=== PATIENT | male | born 1950 | race African-American/Black ===

== ENCOUNTER 2019-05-26 16:10 | Inpatient (IN) | payer OTHER ==
[~2019-05-26] VITALS: Ht 195.6 cm; Wt 128.4 kg
[~2019-05-26 16:10] MED LIST: CLONIDINE; HYDR-519; LISINOPRIL; MARIJUANA; VERAPAMIL
[2019-05-26] MEDS ORDERED: SODIUM CHLORIDE 0.9% 1,000 ML IV ONE ×2 (16:33→17:39)
[2019-05-26] MEDS ORDERED: LEVETIRACETAM 500MG PREMIX 100 ML IV ONE (16:45)
[2019-05-26] MEDS ORDERED: LORAZEPAM 2MG/ML CPJ IV ONE ×2 (16:45→22:00)
[2019-05-26 16:56] LABS: BG BASE EXCESS -5.9 mmol/L (-2.0-2.0); BG CARBOXYHEMOGLOBIN 0.9 % (0.5-1.5); BG DEOXYHEMOGLOBIN 4.2 % (0.0-5.0); BG HCO3 ACT 16.8 mmol/L (22.0-26.0); BG METHEMOGLOBIN 0.5 % (0.0-1.5); BG OXYGEN SATURATION 95.7 % (92.0-98.5); BG OXYHEMOGLOBIN 94.4 % (94.0-97.0); BG PCO2 27.2 mmHg (35.0-45.0); BG PH 7.409 (7.350-7.450); BG PO2 75.1 mmHg (75.0-100.0); BG SAMPLE SITE LEFT RADIAL; BG TOTAL HEMOGLOBIN 17.1 g/dL (12.0-18.0); BG VENT MODE ROOM AIR
[2019-05-26 17:38] LABS: HEMATOCRIT. 51.2 % (42.0-52.0); MEAN CORPUSCULAR HEMOGLOBIN 30.4 pg (28.0-32.0); MEAN CORPUSCULAR VOLUME 91.9 fL (80.0-94.0); MEAN PLATELET VOLUME 9.2 fl (7.4-10.4); PLATELET 225 x1000/uL (130-400); RED BLOOD CELL COUNT 5.57 mill/uL (4.7-6.1); RED CELL DISTRIBUTION WIDTH 15.1 % (11.6-14.6)
[2019-05-26] MEDS ORDERED: ACETAMINOPHEN 650MG SUPP PR STA (17:39)
[2019-05-26 17:42] LABS: INR 1.1; PARTIAL THROMBOPLASTIN TIME 28.7 sec (23.4-31.0)
[2019-05-26] MEDS ORDERED: PIPERACILLIN/TAZ 3.375G PREMIX 50 ML IV ONE (17:45)
[2019-05-26] MEDS ORDERED: VANCOMYCIN 1 G PREMIX 200 ML IV ONE (17:45)
[2019-05-26 18:00] LABS: CLARITY URINE CLOUDY (CLEAR); COLOR URINE YELLOW (YELLOW); KETONES URINE 3+ (NEGATIVE); LEUKOCYTE ESTERASE URINE NEGATIVE (NEGATIVE); NITRITE URINE NEGATIVE (NEGATIVE); OCCULT BLOOD URINE 3+ (NEGATIVE); PROTEIN URINE 2+ (NEGATIVE); SPECIFIC GRAVITY URINE 1.019 (1.005-1.030); UROBILINOGEN URINE 0.2 E.U./dL (0.2-1.0)
[2019-05-26 18:10] LABS: PLATELET ESTIMATE NORMAL
[2019-05-26 18:20] LABS: *AMPHETAMINES SCREEN URINE NEGATIVE (NEGATIVE); *BARBITURATES SCREEN URINE NEGATIVE (NEGATIVE); *BENZODIAZEPINES SCREEN URINE NEGATIVE (NEGATIVE); *COCAINE SCREEN URINE NEGATIVE (NEGATIVE); CANNABINOID URINE SCREEN PRESUMTIVE POSITIVE (NEGATIVE); METHADONE URINE SCREEN NEGATIVE (NEGATIVE); OPIATES URINE SCREEN NEGATIVE (NEGATIVE); PHENCYCLIDINE URINE SCREEN NEGATIVE (NEGATIVE)
[2019-05-26 19:13] LABS: CHLORIDE 107 mEq/L (98-107)
[2019-05-26 19:20] LABS: ETHANOL BLOOD < 10 mg/dL
[2019-05-26] MEDS ORDERED: KETOROLAC 30MG/ML VIAL IV ONE (19:30)
[2019-05-26 19:33] LABS: CARBAMAZEPINE < 0.5 ug/mL (4-12); PHENOBARBITAL < 2.1 ug/mL (15.0-40.0); VALPROIC ACID < 3.0 ug/mL (50-100)
[2019-05-26 19:57] LABS: CREATINE KINASE 3415 IU/L (39-308)
[2019-05-26] MEDS ORDERED: MAGNESIUM/ALUMINUM HYDROXIDE/SIMETHICONE 30ML UDC PO PRN (22:30)
[2019-05-26] MEDS ORDERED: DOCUSATE SODIUM 100MG CAPSULE PO PRN (22:30)
[2019-05-26] MEDS ORDERED: ZOLPIDEM TARTRATE 5MG TABLET PO PRN (22:30)
[2019-05-26] MEDS ORDERED: ONDANSETRON HCL 4MG/2ML INJ IV PRN (22:30)
[2019-05-26] MEDS ORDERED: LORAZEPAM 2MG/ML CPJ IV PRN (22:30)
[2019-05-26] MEDS ORDERED: ENOXAPARIN 40MG/0.4ML SYR SUBCUT SCH (22:30)
[2019-05-26] MEDS ORDERED: IPRATROPIUM/ALBUTEROL 0.5-3(2.5)MG/3ML NEB NEB PRN (22:30)
[2019-05-26] MEDS ORDERED: CLONIDINE 0.1MG TABLET PO PRN (22:30)
[2019-05-26] MEDS ORDERED: GUAIFENESIN 200MG/10ML SUGAR FREE UDC PO PRN (22:30)
[2019-05-26] MEDS ORDERED: KETOROLAC 15MG/ML VIAL IV PRN (23:00)
[2019-05-26] MEDS ORDERED: TRAMADOL 50MG TABLET PO PRN (23:00)
[2019-05-26] MEDS ORDERED: ACETAMINOPHEN 650MG SUPP PR ONE (23:00)
[2019-05-26] MEDS ORDERED: NITROGLYCERIN 0.4MG TABLET SL SL PRN (23:00)
[2019-05-27] VITALS (12 sets, daily range): BP systolic 121–157; BP diastolic 39–107
[2019-05-27] MEDS: ACETAMINOPHEN 325MG TABLET PO PRN ×2 (02:41→10:54)
[2019-05-27] MEDS: ENOXAPARIN 120MG/0.8ML SYR SUBCUT SCH ×2 (02:42→14:03)
[2019-05-27] MEDS ORDERED: CEFTRIAXONE 1 G PREMIX 50 ML IV SCH (03:00)
[2019-05-27] MEDS ORDERED: LEVOFLOXACIN 500MG PREMIX 100 ML IV SCH (04:00)
[2019-05-27 07:36] LABS: BASOPHILS % 0.4 % (0.0-2.0); HEMATOCRIT. 44.4 % (42.0-52.0); MEAN CORPUSCULAR HEMOGLOBIN 30.2 pg (28.0-32.0); MEAN CORPUSCULAR VOLUME 89.2 fL (80.0-94.0); MEAN PLATELET VOLUME 9.3 fl (7.4-10.4); MONOCYTES % 9.9 % (2.0-8.0); NEUTROPHILS % 79.7 % (40.0-76.0); PLATELET 196 x1000/uL (130-400); RED BLOOD CELL COUNT 4.97 mill/uL (4.7-6.1); RED CELL DISTRIBUTION WIDTH 15.2 % (11.6-14.6)
[2019-05-27 07:49] LABS: CHLORIDE 111 mEq/L (98-107)
[2019-05-27 08:06] LABS: PHOSPHORUS 3.9 mg/dL (2.5-4.9)
[2019-05-27 08:11] LABS: CREATINE KINASE MB FRACTION 9.4 ng/mL (0.5-3.6)
[2019-05-27 08:41] LABS: CREATINE KINASE 11279 IU/L (39-308)
[2019-05-27] MEDS ORDERED: LEVETIRACETAM 500MG PREMIX 100 ML IV SCH (09:00)
[2019-05-27] MEDS ORDERED: POTASSIUM CHLORIDE 20MEQ/PACKET PO SCH (10:15)
[2019-05-27] MEDS: ASCORBIC ACID 500 MG TABLET PO SCH ×2 (10:53→20:32)
[2019-05-27] MEDS: FAMOTIDINE 20MG TABLET PO SCH ×2 (10:53→20:39)
[2019-05-27] MEDS: ASPIRIN 325MG EC TABLET PO SCH (10:53)
[2019-05-27] MEDS: ZINC SULFATE 220 MG ( 50 ) CAPSULE PO SCH (10:54)
[2019-05-27] MEDS: AMLODIPINE 10MG TABLET PO SCH (10:57)
[2019-05-27] MEDS: LISINOPRIL 20MG TABLET PO SCH ×2 (10:57→20:32)
[2019-05-27 20:14] LABS: CREATINE KINASE MB FRACTION 10.7 ng/mL (0.5-3.6)
[2019-05-27] MEDS: LEVETIRACETAM 500MG PREMIX 100 ML IV SCH (20:32)
[2019-05-28] VITALS (18 sets, daily range): BP systolic 96–164; BP diastolic 38–111
[2019-05-28] MEDS ORDERED: CEFTRIAXONE 1 G PREMIX 50 ML IV SCH (03:00)
[2019-05-28] MEDS: ENOXAPARIN 120MG/0.8ML SYR SUBCUT SCH ×2 (03:13→15:40)
[2019-05-28] MEDS ORDERED: LEVOFLOXACIN 500MG PREMIX 100 ML IV SCH (04:00)
[2019-05-28 08:14] LABS: BASOPHILS % 0.4 % (0.0-2.0); HEMATOCRIT. 44.7 % (42.0-52.0); LYMPHOCYTES % 16.6 % (20.0-50.0); MEAN CORPUSCULAR HEMOGLOBIN 30.4 pg (28.0-32.0); MEAN CORPUSCULAR VOLUME 90.6 fL (80.0-94.0); MEAN PLATELET VOLUME 9.9 fl (7.4-10.4); MONOCYTES % 8.2 % (2.0-8.0); NEUTROPHILS % 74.8 % (40.0-76.0); PLATELET 186 x1000/uL (130-400); RED BLOOD CELL COUNT 4.94 mill/uL (4.7-6.1)
[2019-05-28] MEDS: LEVETIRACETAM 500MG PREMIX 100 ML IV SCH (08:18)
[2019-05-28] MEDS: ASPIRIN 325MG EC TABLET PO SCH (08:22)
[2019-05-28] MEDS: ASCORBIC ACID 500 MG TABLET PO SCH ×2 (08:22→20:47)
[2019-05-28] MEDS: FAMOTIDINE 20MG TABLET PO SCH ×2 (08:23→20:47)
[2019-05-28] MEDS: LISINOPRIL 20MG TABLET PO SCH ×2 (08:23→20:47)
[2019-05-28] MEDS: AMLODIPINE 10MG TABLET PO SCH (08:23)
[2019-05-28] MEDS: ZINC SULFATE 220 MG ( 50 ) CAPSULE PO SCH (08:23)
[2019-05-28 09:46] LABS: CHLORIDE 111 mEq/L (98-107)
[2019-05-28 09:59] LABS: PHOSPHORUS 3.6 mg/dL (2.5-4.9)
[2019-05-28] MEDS: METOPROLOL TARTRATE 25MG TABLET PO SCH ×2 (13:34→20:47)
== END 2019-05-28 20:57 | disposition short-term general hospital (02) | DRG 871 ==
LOC: ER 16:10 → 5EST 18:33 → EDBEDREQSVC 18:35 → EDBEDREQTM 18:35 → EDBEDREQ 18:35 → SUPCPDRO 22:00 → ENRESERV 23:50
PROVIDERS: ADMIT Internal Medicine; ATTEND Internal Medicine
DX: A41.9 Sepsis, unspecified organism (principal); I21.4 Non-ST elevation (NSTEMI) myocardial infarction; G92 Toxic encephalopathy; E87.2 Acidosis; M62.82 Rhabdomyolysis; N39.0 Urinary tract infection, site not specified; E66.9 Obesity, unspecified; E78.00 Pure hypercholesterolemia, unspecified; E78.5 Hyperlipidemia, unspecified; G40.909 Epilepsy, unspecified, not intractable, without status epilepticus; E83.51 Hypocalcemia; E86.0 Dehydration; E87.6 Hypokalemia; F03.90 Unspecified dementia, unspecified severity, without behavioral disturbance, psychotic disturbance, mood disturbance, and anxiety; F12.90 Cannabis use, unspecified, uncomplicated; I11.9 Hypertensive heart disease without heart failure; Z82.3 Family history of stroke; Z82.49 Family history of ischemic heart disease and other diseases of the circulatory system; Z91.14 Patient's other noncompliance with medication regimen; Z91.19 Patient's noncompliance with other medical treatment and regimen; Z79.899 Other long term (current) drug therapy
CPT/HCPCS: 36415; 36600; 70551; 71045; 80061; 80156; 80165; 80184; 80185; 80305; 80320; 81003; 82140; 82375; 82550; 82553; 82805; 82962; 83036; 83605; 83735; 83880; 84100; 84145; 84443; 84484; 93005; 93306; 93970; 96365; 96367; 96375; 96376; 99291; J0696; J1650; J1885; J1953; J1956; J2060; J2543; J3370; J7030; J7040; A4315; G0480

== ENCOUNTER 2019-07-18 13:54 | Inpatient (IN) | payer OTHER ==
[~2019-07-18] VITALS: Ht 195.6 cm; Wt 131.5 kg
[2019-07-18] MEDS ORDERED: LEVETIRACETAM 1000MG/100ML 100 ML IV ONE (14:45)
[2019-07-18] MEDS ORDERED: LORAZEPAM 2MG/ML CPJ IV ONE (14:45)
[2019-07-18 15:20] LABS: BASOPHILS % 0.4 % (0.0-2.0); EOSINOPHILS % 0.5 % (0.0-5.0); HEMATOCRIT. 48.2 % (42.0-52.0); HEMOGLOBIN. 15.7 g/dL (14.0-18.0); MEAN CORPUSCULAR HEMOGLOBIN 30.7 pg (28.0-32.0); MEAN CORPUSCULAR VOLUME 94.1 fL (80.0-94.0); MEAN PLATELET VOLUME 9.8 fl (7.4-10.4); MONOCYTES % 4.7 % (2.0-8.0); NEUTROPHILS % 71.4 % (40.0-76.0); PLATELET 200 x1000/uL (130-400); RED BLOOD CELL COUNT 5.12 mill/uL (4.7-6.1); RED CELL DISTRIBUTION WIDTH 15.1 % (11.6-14.6)
[2019-07-18 15:24] LABS: CHLORIDE 106 mEq/L (98-107)
[2019-07-18 15:31] LABS: ETHANOL BLOOD < 10 mg/dL
[2019-07-18] MEDS ORDERED: CLONIDINE 0.1MG TABLET PO PRN (18:15)
[2019-07-18] MEDS ORDERED: ACETAMINOPHEN 325MG TABLET PO PRN (18:15)
[2019-07-18] MEDS ORDERED: MAGNESIUM/ALUMINUM HYDROXIDE/SIMETHICONE 30ML UDC PO PRN (18:15)
[2019-07-18] MEDS ORDERED: HYDROCODONE/ACETAMINOPHEN 5/325MG TABLET PO PRN (18:15)
[2019-07-18] MEDS ORDERED: LEVETIRACETAM 500MG PREMIX 100 ML IV ONE (18:15)
[2019-07-18] MEDS ORDERED: ONDANSETRON HCL 4MG/2ML INJ IV PRN (18:15)
[2019-07-18 18:42] LABS: CLARITY URINE CLEAR (CLEAR); COLOR URINE YELLOW (YELLOW); KETONES URINE TRACE (NEGATIVE); LEUKOCYTE ESTERASE URINE NEGATIVE (NEGATIVE); NITRITE URINE NEGATIVE (NEGATIVE); OCCULT BLOOD URINE NEGATIVE (NEGATIVE); PROTEIN URINE TRACE (NEGATIVE); SPECIFIC GRAVITY URINE 1.017 (1.005-1.030); UROBILINOGEN URINE 0.2 E.U./dL (0.2-1.0)
[2019-07-18 19:00] LABS: *AMPHETAMINES SCREEN URINE NEGATIVE (NEGATIVE); *BARBITURATES SCREEN URINE NEGATIVE (NEGATIVE); *BENZODIAZEPINES SCREEN URINE NEGATIVE (NEGATIVE); *COCAINE SCREEN URINE NEGATIVE (NEGATIVE); METHADONE URINE SCREEN NEGATIVE (NEGATIVE)
[2019-07-18 19:01] LABS: CANNABINOID URINE SCREEN PRESUMTIVE POSITIVE (NEGATIVE); OPIATES URINE SCREEN NEGATIVE (NEGATIVE); PHENCYCLIDINE URINE SCREEN NEGATIVE (NEGATIVE)
[2019-07-18] MEDS: AMLODIPINE 10MG TABLET PO SCH (19:57)
[2019-07-18] MEDS: ENOXAPARIN 40MG/0.4ML SYR SUBCUT SCH (20:01)
[2019-07-18] MEDS: DEXT 5%/0.45% NACL 1000ML 1,000 ML IV SCH (21:26)
[2019-07-18] MEDS ORDERED: LEVETIRACETAM 500MG PREMIX 100 ML IV SCH (22:00)
[2019-07-18 23:04] LABS: CREATINE KINASE 249 IU/L (39-308)
[2019-07-19] VITALS (7 sets, daily range): BP systolic 135–159; BP diastolic 79–90
[2019-07-19] MEDS: LORAZEPAM 2MG/ML CPJ IV PRN (02:04)
[2019-07-19 07:23] LABS: CHLORIDE 108 mEq/L (98-107)
[2019-07-19 07:37] LABS: BASOPHILS % 0.2 % (0.0-2.0); HEMATOCRIT. 44.9 % (42.0-52.0); HEMOGLOBIN. 15.1 g/dL (14.0-18.0); LYMPHOCYTES % 14.6 % (20.0-50.0); MEAN CORPUSCULAR HEMOGLOBIN 30.2 pg (28.0-32.0); MEAN PLATELET VOLUME 9.5 fl (7.4-10.4); MONOCYTES % 6.9 % (2.0-8.0); NEUTROPHILS % 78.3 % (40.0-76.0); PLATELET 165 x1000/uL (130-400); RED BLOOD CELL COUNT 4.99 mill/uL (4.7-6.1); RED CELL DISTRIBUTION WIDTH 14.8 % (11.6-14.6)
[2019-07-19 07:39] LABS: CREATINE KINASE 371 IU/L (39-308)
[2019-07-19] MEDS ORDERED: LEVETIRACETAM 500MG PREMIX 100 ML IV SCH ×2 (09:00→22:15)
[2019-07-19] MEDS: AMLODIPINE 10MG TABLET PO SCH (09:00)
[2019-07-19] MEDS ORDERED: LEVETIRACETAM 500MG PREMIX 100 ML IV ONE (09:00)
[2019-07-19] MEDS: ENOXAPARIN 40MG/0.4ML SYR SUBCUT SCH (09:00)
[2019-07-19] MEDS: DEXT 5%/0.45% NACL 1000ML 1,000 ML IV SCH ×2 (10:43→21:53)
[2019-07-19] MEDS ORDERED: PHENYTOIN SODIUM 500 MG in SODIUM CHLORIDE 0.9% 50 ML IV NR (12:00)
[2019-07-19] MEDS ORDERED: KEPP500 PO (16:38)
[2019-07-19] MEDS ORDERED: ATORVASTATIN CALCIUM 20MG TABLET PO SCH (21:00)
[2019-07-20] VITALS: BP 139/86
[2019-07-20] MEDS: LORAZEPAM 2MG/ML CPJ IV PRN (00:07)
[2019-07-20 04:00] VITALS: BP 134/74
[2019-07-20 08:00] VITALS: BP 141/79
[2019-07-20] MEDS: AMLODIPINE 10MG TABLET PO SCH (08:57)
[2019-07-20] MEDS ORDERED: ENOXAPARIN 30MG/0.3ML SYR SUBCUT SCH (09:00)
[2019-07-20] MEDS ORDERED: LEVETIRACETAM 500MG TABLET PO SCH (09:00)
[2019-07-20] MEDS: DEXT 5%/0.45% NACL 1000ML 1,000 ML IV SCH (10:45)
== END 2019-07-20 12:44 | disposition home or self-care (01) | DRG 101 ==
LOC: ER 13:54 → 7WST 17:04 → EDBEDREQSVC 17:09 → EDBEDREQ 17:09 → EDBEDREQTM 17:28 → ENRESERV 19:12 → CANRESERV 19:30 → ENRESERV 19:30 → EDBEDREQSVC 19:33 → EDBEDREQTM 19:36 → ENRESERV 23:17
PROVIDERS: ADMIT Hospitalist; ATTEND Hospitalist
DX: G40.401 Other generalized epilepsy and epileptic syndromes, not intractable, with status epilepticus (principal); E66.01 Morbid (severe) obesity due to excess calories; I10 Essential (primary) hypertension; Z68.34 Body mass index [BMI] 34.0-34.9, adult; F51.04 Psychophysiologic insomnia; G89.29 Other chronic pain; M54.5 Low back pain; M48.00 Spinal stenosis, site unspecified; Z91.14 Patient's other noncompliance with medication regimen; Z82.49 Family history of ischemic heart disease and other diseases of the circulatory system
CPT/HCPCS: 36415; 71045; 80053; 80305; 80320; 81003; 82550; 85025; 93005; 93970; 99291; J1165; J1650; J1953; J2060; G0480

== ENCOUNTER 2019-11-28 14:22 | Inpatient (IN) | payer OTHER ==
[~2019-11-28] VITALS: Ht 184.2 cm; Wt 146.1 kg
[~2019-11-28 14:22] MED LIST changes: -CLONIDINE; -HYDR-519; +KEPP500 PO; -LISINOPRIL; -MARIJUANA; -VERAPAMIL
[2019-11-28] MEDS ORDERED: ONDANSETRON HCL 4MG/2ML INJ IV STA (14:29)
[2019-11-28] MEDS ORDERED: SODIUM CHLORIDE 0.9% 1,000 ML IV ONE (14:29)
[2019-11-28] MEDS ORDERED: LORAZEPAM 2MG/ML CPJ IV ONE (14:30)
[2019-11-28] MEDS ORDERED: LEVETIRACETAM 1000MG/100ML 100 ML IV ONE (14:30)
[2019-11-28] MEDS ORDERED: LORAZEPAM 2MG/ML CPJ ONE (14:31)
[2019-11-28] MEDS ORDERED: PROPOFOL 10MG/ML 100ML 100 ML IV SCH (15:00)
[2019-11-28] MEDS ORDERED: PROPOFOL 200MG/20ML VIAL IV ONE (15:00)
[2019-11-28] MEDS ORDERED: HYDRALAZINE 20MG/ML VIAL IV ONE ×3 (15:15→16:30)
[2019-11-28 15:20] LABS: BASOPHILS % 0.4 % (0.0-2.0); EOSINOPHILS % 0.8 % (0.0-5.0); HEMOGLOBIN. 15.7 g/dL (14.0-18.0); LYMPHOCYTES % 51.6 % (20.0-50.0); MEAN CORPUSCULAR HEMOGLOBIN 31.4 pg (28.0-32.0); MEAN CORPUSCULAR VOLUME 93.8 fL (80.0-94.0); MEAN PLATELET VOLUME 10.6 fl (7.4-10.4); MONOCYTES % 8.1 % (2.0-8.0); NEUTROPHILS % 39.1 % (40.0-76.0); PLATELET 228 x1000/uL (130-400); RED BLOOD CELL COUNT 5.01 mill/uL (4.7-6.1); RED CELL DISTRIBUTION WIDTH 14.4 % (11.6-14.6)
[2019-11-28 15:41] LABS: CLARITY URINE CLEAR (CLEAR); COLOR URINE YELLOW (YELLOW); KETONES URINE TRACE (NEGATIVE); LEUKOCYTE ESTERASE URINE TRACE (NEGATIVE); NITRITE URINE NEGATIVE (NEGATIVE); OCCULT BLOOD URINE 1+ (NEGATIVE); PROTEIN URINE 2+ (NEGATIVE); SPECIFIC GRAVITY URINE 1.018 (1.005-1.030); UROBILINOGEN URINE 0.2 E.U./dL (0.2-1.0)
[2019-11-28 16:19] LABS: CHLORIDE 104 mEq/L (98-107)
[2019-11-28 16:23] LABS: ETHANOL BLOOD < 10 mg/dL
[2019-11-28 16:42] LABS: *AMPHETAMINES SCREEN URINE NEGATIVE (NEGATIVE); *BARBITURATES SCREEN URINE NEGATIVE (NEGATIVE)
[2019-11-28 16:43] LABS: *BENZODIAZEPINES SCREEN URINE NEGATIVE (NEGATIVE); *COCAINE SCREEN URINE NEGATIVE (NEGATIVE); CANNABINOID URINE SCREEN PRESUMTIVE POSITIVE (NEGATIVE); METHADONE URINE SCREEN NEGATIVE (NEGATIVE); OPIATES URINE SCREEN NEGATIVE (NEGATIVE); PHENCYCLIDINE URINE SCREEN NEGATIVE (NEGATIVE)
[2019-11-28] MEDS ORDERED: VALPROATE SODIUM 500 MG in SODIUM CHLORIDE 0.9% 100 ML IV SCH (17:15)
[2019-11-28] MEDS ORDERED: NICARDIPINE 40MG/200ML PREMIX 200 ML IV PRN (17:45)
[2019-11-28 17:52] LABS: BG BASE EXCESS -7.8 mmol/L (-2.0-2.0); BG CARBOXYHEMOGLOBIN 0.4 % (0.5-1.5); BG DEOXYHEMOGLOBIN 0.8 % (0.0-5.0); BG FRACTION INSPIRED OXYGEN 100; BG HCO3 ACT 16.7 mmol/L (22.0-26.0); BG METHEMOGLOBIN 0.2 % (0.0-1.5); BG OXYGEN SATURATION 99.2 % (92.0-98.5); BG OXYHEMOGLOBIN 98.6 % (94.0-97.0); BG PCO2 31.6 mmHg (35.0-45.0); BG PO2 213.9 mmHg (75.0-100.0); BG SAMPLE SITE RIGHT RADIAL; BG TIDAL VOLUME(mL) 550 mL; BG TOTAL HEMOGLOBIN 15.1 g/dL (12.0-18.0); BG VENT MODE VENT - A/C; BG VENT RATE 14 set
[2019-11-28] MEDS: DEXT 5%/0.45% NACL 1000ML 1,000 ML IV SCH (18:21)
[2019-11-28] MEDS ORDERED: LORAZEPAM 2MG/ML CPJ IV PRN ×2 (18:30→23:15)
[2019-11-28] MEDS ORDERED: PANTOPRAZOLE SODIUM 40 MG/VIAL IV SCH (18:30)
[2019-11-28] MEDS ORDERED: ONDANSETRON HCL 4MG/2ML INJ IV PRN (18:30)
[2019-11-28] MEDS ORDERED: MORPHINE SULFATE 2 MG/ML CPJ (NOT FOR IM USE) IV PRN (18:30)
[2019-11-28] MEDS: AMLODIPINE 10MG TABLET PO SCH (18:30)
[2019-11-28] MEDS ORDERED: LISINOPRIL 5MG TABLET PO SCH (18:30)
[2019-11-28] MEDS ORDERED: ACETAMINOPHEN 325MG TABLET PO PRN (18:30)
[2019-11-28] MEDS: LISINOPRIL 20MG TABLET PO SCH (20:00)
[2019-11-28] MEDS: METOPROLOL TARTRATE 25MG TABLET PO SCH (21:00)
[2019-11-29] VITALS (30 sets, daily range): BP systolic 87–154; BP diastolic 56–85
[2019-11-29] MEDS ORDERED: NICARDIPINE 50 MG in SODIUM CHLORIDE 0.9% 230 ML IV PRN (03:00)
[2019-11-29] MEDS ORDERED: NICARDIPINE 40MG/200ML PREMIX 200 ML IV PRN (03:00)
[2019-11-29 04:59] LABS: CHLORIDE 107 mEq/L (98-107)
[2019-11-29 05:01] LABS: HEMATOCRIT. 41.8 % (42.0-52.0); HEMOGLOBIN. 14.5 g/dL (14.0-18.0); MEAN CORPUSCULAR HEMOGLOBIN 31.2 pg (28.0-32.0); MEAN CORPUSCULAR VOLUME 90.3 fL (80.0-94.0); PLATELET 139 x1000/uL (130-400); RED BLOOD CELL COUNT 4.63 mill/uL (4.7-6.1)
[2019-11-29] MEDS: AMLODIPINE 10MG TABLET PO SCH (09:29)
[2019-11-29] MEDS: METOPROLOL TARTRATE 25MG TABLET PO SCH ×2 (09:29→20:37)
[2019-11-29] MEDS: LISINOPRIL 20MG TABLET PO SCH (09:29)
[2019-11-29 10:10] LABS: BG BASE EXCESS 1.5 mmol/L (-2.0-2.0); BG CARBOXYHEMOGLOBIN 0.2 % (0.5-1.5); BG DEOXYHEMOGLOBIN 1.6 % (0.0-5.0); BG FRACTION INSPIRED OXYGEN 50; BG HCO3 ACT 25.6 mmol/L (22.0-26.0); BG METHEMOGLOBIN 0.2 % (0.0-1.5); BG OXYGEN SATURATION 98.4 % (92.0-98.5); BG PCO2 38.8 mmHg (35.0-45.0); BG PH 7.437 (7.350-7.450); BG PO2 115.4 mmHg (75.0-100.0); BG SAMPLE SITE RIGHT RADIAL; BG TIDAL VOLUME(mL) 550 mL; BG TOTAL HEMOGLOBIN 14.7 g/dL (12.0-18.0); BG VENT MODE VENT - A/C; BG VENT RATE 16 set
[2019-11-29 10:31] LABS: PLATELET ESTIMATE NORMAL
[2019-11-29] MEDS: PROPOFOL 10MG/ML 100ML 100 ML IV PRN ×5 (11:36→23:59)
[2019-11-29] MEDS: PANTOPRAZOLE SODIUM 40 MG/VIAL IV SCH (12:00)
[2019-11-29] MEDS: DEXT 5%/0.45% NACL 1000ML 1,000 ML IV SCH (12:02)
[2019-11-29] MEDS: LEVETIRACETAM 500MG PREMIX 100 ML IV SCH ×2 (12:58→20:36)
[2019-11-29] MEDS ORDERED: IPRATROPIUM/ALBUTEROL 0.5-3(2.5)MG/3ML NEB HHN PRN (17:15)
[2019-11-29] MEDS: ENOXAPARIN 40MG/0.4ML SYR SUBCUT SCH (17:38)
[2019-11-29] MEDS: IPRATROPIUM/ALBUTEROL 0.5-3(2.5)MG/3ML NEB HHN SCH (20:55)
[2019-11-30] VITALS (47 sets, daily range): BP systolic 98–191; BP diastolic 53–130
[2019-11-30] MEDS: PROPOFOL 10MG/ML 100ML 100 ML IV PRN ×4 (03:00→08:58)
[2019-11-30] MEDS: DEXT 5%/0.45% NACL 1000ML 1,000 ML IV SCH ×2 (04:11→20:11)
[2019-11-30 06:41] LABS: CHLORIDE 104 mEq/L (98-107)
[2019-11-30 06:43] LABS: BASOPHILS % 0.3 % (0.0-2.0); EOSINOPHILS % 0.1 % (0.0-5.0); HEMATOCRIT. 38.7 % (42.0-52.0); HEMOGLOBIN. 13.1 g/dL (14.0-18.0); LYMPHOCYTES % 11.3 % (20.0-50.0); MEAN CORPUSCULAR HEMOGLOBIN 31.2 pg (28.0-32.0); MEAN CORPUSCULAR VOLUME 92.5 fL (80.0-94.0); MEAN PLATELET VOLUME 9.9 fl (7.4-10.4); MONOCYTES % 8.9 % (2.0-8.0); NEUTROPHILS % 79.4 % (40.0-76.0); PLATELET 133 x1000/uL (130-400); RED BLOOD CELL COUNT 4.19 mill/uL (4.7-6.1)
[2019-11-30] MEDS: IPRATROPIUM/ALBUTEROL 0.5-3(2.5)MG/3ML NEB HHN SCH ×2 (08:44→14:20)
[2019-11-30 08:50] LABS: BG BASE EXCESS 0.8 mmol/L (-2.0-2.0); BG CARBOXYHEMOGLOBIN 0.5 % (0.5-1.5); BG DEOXYHEMOGLOBIN 2.9 % (0.0-5.0); BG FRACTION INSPIRED OXYGEN 40; BG HCO3 ACT 24.8 mmol/L (22.0-26.0); BG METHEMOGLOBIN 0.2 % (0.0-1.5); BG OXYGEN SATURATION 97.1 % (92.0-98.5); BG OXYHEMOGLOBIN 96.4 % (94.0-97.0); BG PCO2 38.1 mmHg (35.0-45.0); BG PH 7.432 (7.350-7.450); BG PO2 89.5 mmHg (75.0-100.0); BG SAMPLE SITE RIGHT RADIAL; BG TIDAL VOLUME(mL) 550 mL; BG TOTAL HEMOGLOBIN 14.5 g/dL (12.0-18.0); BG VENT MODE VENT - A/C; BG VENT RATE 16 set
[2019-11-30] MEDS: LISINOPRIL 20MG TABLET PO SCH (08:59)
[2019-11-30] MEDS: METOPROLOL TARTRATE 25MG TABLET PO SCH ×2 (08:59→20:11)
[2019-11-30] MEDS: AMLODIPINE 10MG TABLET PO SCH (08:59)
[2019-11-30] MEDS: PANTOPRAZOLE SODIUM 40 MG/VIAL IV SCH (09:00)
[2019-11-30] MEDS ORDERED: POTASSIUM CHLORIDE INJ 40 MEQ in DEXT 5% WATER 500 ML IV NR (10:30)
[2019-11-30] MEDS: LEVETIRACETAM 500MG PREMIX 100 ML IV SCH (10:32)
[2019-11-30 11:38] LABS: BG BASE EXCESS -0.1 mmol/L (-2.0-2.0); BG CARBOXYHEMOGLOBIN 0.3 % (0.5-1.5); BG DEOXYHEMOGLOBIN 2.2 % (0.0-5.0); BG FRACTION INSPIRED OXYGEN 40; BG HCO3 ACT 23.5 mmol/L (22.0-26.0); BG METHEMOGLOBIN 0.2 % (0.0-1.5); BG OXYGEN SATURATION 97.8 % (92.0-98.5); BG OXYHEMOGLOBIN 97.3 % (94.0-97.0); BG PCO2 35.5 mmHg (35.0-45.0); BG PH 7.439 (7.350-7.450); BG PO2 101.1 mmHg (75.0-100.0); BG PRESSURE SUPPORT 10; BG SAMPLE SITE RIGHT RADIAL; BG VENT MODE VENT - CPAP
[2019-11-30] MEDS: HYDRALAZINE 20MG/ML VIAL IV PRN ×2 (16:11→20:59)
[2019-11-30] MEDS: ENOXAPARIN 40MG/0.4ML SYR SUBCUT SCH (18:09)
[2019-11-30] MEDS ORDERED: POTASSIUM CHLORIDE 20MEQ TABLET SR PO NR (20:30)
[2019-11-30] MEDS ORDERED: LEVETIRACETAM 500MG TABLET PO SCH (21:00)
[2019-11-30] MEDS ORDERED: ATORVASTATIN CALCIUM 20MG TABLET PO SCH (21:00)
[2019-11-30] MEDS ORDERED: LISINOPRIL 40MG TABLET PO NR (21:30)
[2019-11-30] MEDS ORDERED: ENALAPRIL 2.5MG/2ML VIAL 2ML IV NR (21:30)
== END 2019-11-30 21:50 | disposition short-term general hospital (02) | DRG 208 ==
LOC: ER 14:22 → CVICU 17:50 → EDBEDREQ 17:54 → EDBEDREQTM 17:54 → ENRESERV 11-29 08:19 → CVICU 11-29 09:27
PROVIDERS: ADMIT Hospitalist; ATTEND Hospitalist
PROC: 0BH17EZ Insertion of Endotracheal Airway into Trachea, Via Natural or Artificial Opening (ICD-10-PCS; principal; 2019-11-28)
PROC: 5A1945Z Respiratory Ventilation, 24-96 Consecutive Hours (ICD-10-PCS; 2019-11-28)
DX: J96.00 Acute respiratory failure, unspecified whether with hypoxia or hypercapnia (principal); J98.11 Atelectasis; G40.401 Other generalized epilepsy and epileptic syndromes, not intractable, with status epilepticus; F10.10 Alcohol abuse, uncomplicated; I10 Essential (primary) hypertension; F12.90 Cannabis use, unspecified, uncomplicated; D72.829 Elevated white blood cell count, unspecified; Z79.899 Other long term (current) drug therapy; Z78.1 Physical restraint status
CPT/HCPCS: 36415; 36600; 71045; 80048; 80053; 80305; 80320; 81003; 82375; 82805; 82962; 84132; 84478; 84484; 85025; 87070; 92610; 93005; 93970; 96365; 99291; C9113; J0360; J1650; J1953; J2060; J2405; J2704; J3480; J3490; J7030; J7050; J7060; G0480

== ENCOUNTER 2020-11-06 14:22 | Inpatient (IN) | payer OTHER ==
[~2020-11-06] VITALS: Ht 195.6 cm; Wt 137.0 kg
[2020-11-06 15:40] LABS: HEMATOCRIT. 45.6 % (42.0-52.0); HEMOGLOBIN. 15.8 g/dL (14.0-18.0); MEAN CORPUSCULAR HEMOGLOBIN 30.8 pg (28.0-32.0); MEAN CORPUSCULAR VOLUME 88.5 fL (80.0-94.0); MEAN PLATELET VOLUME 9.4 fl (7.4-10.4); PLATELET 167 x1000/uL (130-400); RED BLOOD CELL COUNT 5.15 mill/uL (4.7-6.1); RED CELL DISTRIBUTION WIDTH 13.8 % (11.6-14.6)
[2020-11-06] MEDS ORDERED: LEVETIRACETAM 500MG PREMIX 100 ML IV ONE (15:45)
[2020-11-06 15:48] LABS: CHLORIDE 112 mEq/L (98-107)
[2020-11-06 15:54] LABS: ETHANOL BLOOD < 10 mg/dL
[2020-11-06 15:57] LABS: VALPROIC ACID <3.0 ug/mL ug/mL (50-100)
[2020-11-06 16:05] LABS: CARBAMAZEPINE < 0.5 ug/mL (4-12); PHENOBARBITAL < 2.1 ug/mL (15.0-40.0)
[2020-11-06 16:08] LABS: PLATELET ESTIMATE NORMAL
[2020-11-06] MEDS ORDERED: CLONIDINE 0.2MG TABLET PO ONE (17:00)
[2020-11-06] MEDS ORDERED: AZITHROMYCIN 500 MG in DEXT 5% WATER 250 ML IV ONE (18:00)
[2020-11-06] MEDS ORDERED: CEFTRIAXONE 1 G PREMIX 50 ML IV ONE (18:00)
[2020-11-06] MEDS ORDERED: HYDRALAZINE 20MG/ML VIAL IV ONE ×2 (18:45→20:15)
[2020-11-06] MEDS ORDERED: ASPIRIN 81MG TABLET PO ONE (20:15)
[2020-11-06] MEDS ORDERED: NITROGLYCERIN OINT 1GM/INCH UDPKT TD ONE (20:15)
[2020-11-06] MEDS ORDERED: FUROSEMIDE 40MG/4ML VIAL IV ONE (20:15)
[2020-11-06] MEDS ORDERED: MAGNESIUM/ALUMINUM HYDROXIDE/SIMETHICONE 30ML UDC PO PRN (21:15)
[2020-11-06] MEDS ORDERED: GUAIFENESIN 200MG/10ML SUGAR FREE UDC PO PRN (21:15)
[2020-11-06] MEDS ORDERED: NITROGLYCERIN 0.4MG TABLET SL SL PRN (21:15)
[2020-11-06] MEDS ORDERED: ACETAMINOPHEN 325MG TABLET PO PRN (21:15)
[2020-11-06] MEDS ORDERED: ONDANSETRON HCL 4MG/2ML INJ IV PRN (21:15)
[2020-11-06] MEDS ORDERED: DOCUSATE SODIUM 100MG CAPSULE PO PRN (21:15)
[2020-11-06] MEDS ORDERED: IPRATROPIUM/ALBUTEROL 0.5-3(2.5)MG/3ML NEB NEB PRN (21:15)
[2020-11-06] MEDS ORDERED: PIPERACILLIN/TAZ 3.375G PREMIX 50 ML IV SCH ×2 (21:15→22:00)
[2020-11-06] MEDS ORDERED: LORAZEPAM 2MG/ML CPJ IV PRN (21:15)
[2020-11-06] MEDS ORDERED: CLONIDINE 0.1MG TABLET PO PRN (21:15)
[2020-11-06 21:40] LABS: CLARITY URINE CLEAR (CLEAR); COLOR URINE YELLOW (YELLOW); KETONES URINE 2+ (NEGATIVE); LEUKOCYTE ESTERASE URINE TRACE (NEGATIVE); NITRITE URINE NEGATIVE (NEGATIVE); OCCULT BLOOD URINE 1+ (NEGATIVE); PROTEIN URINE 1+ (NEGATIVE); SPECIFIC GRAVITY URINE 1.011 (1.005-1.030); UROBILINOGEN URINE 0.2 E.U./dL (0.2-1.0)
[2020-11-06 21:54] LABS: *AMPHETAMINES SCREEN URINE NEGATIVE (NEGATIVE)
[2020-11-06 21:55] LABS: *BARBITURATES SCREEN URINE NEGATIVE (NEGATIVE); *BENZODIAZEPINES SCREEN URINE NEGATIVE (NEGATIVE); *COCAINE SCREEN URINE NEGATIVE (NEGATIVE); METHADONE URINE SCREEN NEGATIVE (NEGATIVE); OPIATES URINE SCREEN NEGATIVE (NEGATIVE); PHENCYCLIDINE URINE SCREEN NEGATIVE (NEGATIVE)
[2020-11-06 21:56] LABS: CANNABINOID URINE SCREEN PRESUMTIVE POSITIVE (NEGATIVE)
[2020-11-06] MEDS: HYDRALAZINE HCL 50MG TABLET PO SCH (22:00)
[2020-11-06] MEDS: NITROGLYCERIN OINT 1GM/INCH UDPKT TD SCH (22:00)
[2020-11-06 22:03] LABS: T4 FREE 1.16 ng/dL (0.76-1.46)
[2020-11-06 22:14] LABS: FOLIC ACID (FOLATE) SERUM >20 ng/mL ng/mL (>5.38)
[2020-11-06] MEDS: AMLODIPINE 10MG TABLET PO SCH (22:16)
[2020-11-06 22:25] LABS: VITAMIN B12 SERUM 482 pg/mL (211-911)
[2020-11-06 22:35] LABS: CREATINE KINASE MB FRACTION 2.9 ng/mL (0.5-3.6)
[2020-11-07] MEDS: ENOXAPARIN 40MG/0.4ML SYR SUBCUT SCH ×3 (00:55→20:30)
[2020-11-07] MEDS: ZOLPIDEM TARTRATE 5MG TABLET PO PRN ×2 (03:03→21:38)
[2020-11-07 03:44] VITALS: BP 105/80
[2020-11-07 04:00] VITALS: BP 105/80
[2020-11-07] MEDS: NITROGLYCERIN OINT 1GM/INCH UDPKT TD SCH ×3 (05:47→20:31)
[2020-11-07] MEDS: ACETAMINOPHEN 325MG TABLET PO PRN ×2 (05:48→20:28)
[2020-11-07] MEDS: HYDRALAZINE HCL 50MG TABLET PO SCH ×3 (05:49→20:27)
[2020-11-07] MEDS ORDERED: PIPERACILLIN/TAZOBACTAM 3.375 G in DEXT 5% WATER 100 ML IV SCH (06:00)
[2020-11-07 07:27] LABS: BASOPHILS % 0.2 % (0.0-2.0); HEMATOCRIT. 44.1 % (42.0-52.0); HEMOGLOBIN. 15.4 g/dL (14.0-18.0); LYMPHOCYTES % 11.9 % (20.0-50.0); MEAN CORPUSCULAR HEMOGLOBIN 31.2 pg (28.0-32.0); MEAN CORPUSCULAR VOLUME 89.4 fL (80.0-94.0); MEAN PLATELET VOLUME 9.9 fl (7.4-10.4); MONOCYTES % 11.6 % (2.0-8.0); NEUTROPHILS % 76.3 % (40.0-76.0); PLATELET 166 x1000/uL (130-400); RED BLOOD CELL COUNT 4.93 mill/uL (4.7-6.1); RED CELL DISTRIBUTION WIDTH 13.9 % (11.6-14.6)
[2020-11-07 08:00] VITALS: BP 139/87
[2020-11-07 08:03] LABS: CHLORIDE 108 mEq/L (98-107)
[2020-11-07] MEDS: METOPROLOL TARTRATE 25MG TABLET PO SCH ×2 (08:12→20:27)
[2020-11-07] MEDS: CHOLECALCIFEROL (D3) 1000 UNIT TABLET PO SCH (08:12)
[2020-11-07] MEDS: LISINOPRIL 20MG TABLET PO SCH ×2 (08:12→20:27)
[2020-11-07] MEDS: LEVETIRACETAM 500MG TABLET PO SCH ×2 (08:12→20:27)
[2020-11-07] MEDS: ZINC SULFATE 220 MG ( 50 ) CAPSULE PO SCH (08:12)
[2020-11-07] MEDS: FAMOTIDINE 20MG TABLET PO SCH ×2 (08:12→20:28)
[2020-11-07] MEDS: ASCORBIC ACID 500 MG TABLET PO SCH ×2 (08:12→20:27)
[2020-11-07 08:13] LABS: PHOSPHORUS 3.1 mg/dL (2.5-4.9)
[2020-11-07] MEDS: AMLODIPINE 10MG TABLET PO SCH (08:13)
[2020-11-07 08:16] LABS: CREATINE KINASE 528 IU/L (39-308)
[2020-11-07 08:19] LABS: CREATINE KINASE MB FRACTION 3.4 ng/mL (0.5-3.6)
[2020-11-07] MEDS ORDERED: POTASSIUM CHLORIDE 20MEQ/PACKET PO NR (10:30)
[2020-11-07 12:00] VITALS: BP 143/95
[2020-11-07] MEDS ORDERED: KCL 20MEQ/100ML PREMIX 100 ML IV NR (12:00)
[2020-11-07] MEDS: PIPERACILLIN/TAZOBACTAM 3.375 G in DEXT 5% WATER 100 ML IV SCH ×2 (14:07→20:30)
[2020-11-07 16:00] VITALS: BP 130/91
[2020-11-07] MEDS ORDERED: ALBUTEROL 6.7GM HFA INHALER ORI PRN (16:00)
[2020-11-07] MEDS: FLUTICASONE PROPIONATE 50MCG/SPRAY BOTTLE BOTHNSTRLS SCH (16:54)
[2020-11-07 19:53] VITALS: BP 131/86
[2020-11-08] VITALS: BP_SYST 126; BP_SYST 154; BP_DIAS 82; BP_DIAS 98
[2020-11-08] MEDS: PIPERACILLIN/TAZOBACTAM 3.375 G in DEXT 5% WATER 100 ML IV SCH ×3 (03:07→15:15)
[2020-11-08 04:00] VITALS: BP 147/90
[2020-11-08] MEDS: NITROGLYCERIN OINT 1GM/INCH UDPKT TD SCH ×2 (05:19→14:11)
[2020-11-08] MEDS: HYDRALAZINE HCL 50MG TABLET PO SCH ×2 (05:19→14:11)
[2020-11-08] MEDS ORDERED: ALBUTEROL (0.083%) 2.5MG/3ML NEB HHN PRN (06:45)
[2020-11-08 08:00] VITALS: BP 142/98
[2020-11-08] MEDS: LEVETIRACETAM 500MG TABLET PO SCH (09:21)
[2020-11-08] MEDS: LISINOPRIL 20MG TABLET PO SCH (09:21)
[2020-11-08] MEDS: AMLODIPINE 10MG TABLET PO SCH (09:21)
[2020-11-08] MEDS: ZINC SULFATE 220 MG ( 50 ) CAPSULE PO SCH (09:21)
[2020-11-08] MEDS: CHOLECALCIFEROL (D3) 1000 UNIT TABLET PO SCH (09:21)
[2020-11-08] MEDS: ASCORBIC ACID 500 MG TABLET PO SCH (09:21)
[2020-11-08] MEDS: METOPROLOL TARTRATE 25MG TABLET PO SCH (09:22)
[2020-11-08] MEDS: FAMOTIDINE 20MG TABLET PO SCH (09:22)
[2020-11-08] MEDS: ENOXAPARIN 40MG/0.4ML SYR SUBCUT SCH (10:31)
[2020-11-08] MEDS: FLUTICASONE PROPIONATE 50MCG/SPRAY BOTTLE BOTHNSTRLS SCH (10:51)
[2020-11-08 12:00] VITALS: BP 146/98
[2020-11-08 15:54] VITALS: BP 146/98
[2020-11-08 16:00] VITALS: BP 137/88
== END 2020-11-08 17:30 | disposition short-term general hospital (02) | DRG 100 ==
LOC: ER 14:38 → 7WST 20:06 → ENRESERV 23:41 → 5WST 11-08 00:10
PROVIDERS: ADMIT Internal Medicine; ATTEND Internal Medicine
DX: G40.909 Epilepsy, unspecified, not intractable, without status epilepticus (principal); J69.0 Pneumonitis due to inhalation of food and vomit; G92 Toxic encephalopathy; N17.0 Acute kidney failure with tubular necrosis; I16.1 Hypertensive emergency; E83.51 Hypocalcemia; F12.10 Cannabis abuse, uncomplicated; E78.00 Pure hypercholesterolemia, unspecified; E78.5 Hyperlipidemia, unspecified; J30.9 Allergic rhinitis, unspecified; E87.6 Hypokalemia; Z20.822 Contact with and (suspected) exposure to COVID-19; I10 Essential (primary) hypertension; E66.9 Obesity, unspecified; Z82.49 Family history of ischemic heart disease and other diseases of the circulatory system; Z78.9 Other specified health status; Z68.35 Body mass index [BMI] 35.0-35.9, adult; Z71.51 Drug abuse counseling and surveillance of drug abuser
CPT/HCPCS: 36415; 71045; 80053; 80061; 80156; 80165; 80184; 80185; 80305; 80320; 81003; 82550; 82553; 82607; 82746; 82962; 83036; 83540; 83550; 83605; 83735; 83880; 84100; 84439; 84443; 84484; 85025; 93005; 93306; 93970; 99285; J0360; J0456; J0696; J1650; J1940; J1953; J2543; J3480; J7040; J7060; U0003; U0005; G0480

== ENCOUNTER 2021-06-02 16:58 | Emergency (ER) | payer OTHER ==
[~2021-06-02] VITALS: Ht 185.4 cm; Wt 128.0 kg
[2021-06-02] MEDS ORDERED: LEVETIRACETAM 500MG TABLET PO ONE (17:30)
[2021-06-02 21:54] LABS: BASOPHILS % 0.2 % (0.0-2.0); HEMATOCRIT. 47.6 % (42.0-52.0); HEMOGLOBIN. 15.7 g/dL (14.0-18.0); LYMPHOCYTES % 15.9 % (20.0-50.0); MEAN CORPUSCULAR HEMOGLOBIN 29.1 pg (28.0-32.0); MEAN CORPUSCULAR VOLUME 88.5 fL (80.0-94.0); MEAN PLATELET VOLUME 9.1 fl (7.4-10.4); MONOCYTES % 6.6 % (2.0-8.0); NEUTROPHILS % 77.3 % (40.0-76.0); PLATELET 212 x1000/uL (130-400); RED BLOOD CELL COUNT 5.38 mill/uL (4.7-6.1)
[2021-06-02] MEDS ORDERED: LABETALOL 5MG/ML SYR 20 MG/4 ML SYRINGE IV NR (22:00)
[2021-06-02] MEDS ORDERED: ACETAMINOPHEN 325MG TABLET PO NR (22:00)
[2021-06-02 22:01] LABS: CHLORIDE 104 mEq/L (98-107)
[2021-06-02 22:05] LABS: ETHANOL BLOOD < 10 mg/dL
[2021-06-02 23:34] LABS: CLARITY URINE CLEAR (CLEAR); COLOR URINE YELLOW (YELLOW); KETONES URINE 1+ (NEGATIVE); LEUKOCYTE ESTERASE URINE TRACE (NEGATIVE); NITRITE URINE NEGATIVE (NEGATIVE); OCCULT BLOOD URINE TRACE (NEGATIVE); PH URINE 6.5 (4.5-8.0); PROTEIN URINE 2+ (NEGATIVE); UROBILINOGEN URINE 0.2 E.U./dL (0.2-1.0)
[2021-06-02 23:52] LABS: *AMPHETAMINES SCREEN URINE NEGATIVE (NEGATIVE); *BARBITURATES SCREEN URINE NEGATIVE (NEGATIVE); *BENZODIAZEPINES SCREEN URINE NEGATIVE (NEGATIVE); *COCAINE SCREEN URINE NEGATIVE (NEGATIVE); METHADONE URINE SCREEN NEGATIVE (NEGATIVE); OPIATES URINE SCREEN NEGATIVE (NEGATIVE)
[2021-06-02 23:53] LABS: CANNABINOID URINE SCREEN PRESUMTIVE POSITIVE (NEGATIVE); PHENCYCLIDINE URINE SCREEN NEGATIVE (NEGATIVE)
[2021-06-03 00:22] VITALS: BP 149/86
== END 2021-06-03 00:47 | disposition home or self-care (01) ==
LOC: ER 16:58
DX: G40.909 Epilepsy, unspecified, not intractable, without status epilepticus (principal)
CPT/HCPCS: 36415; 70450; 71045; 80053; 80305; 80320; 81003; 85025; 96374; 99285; J3490; G0480

== ENCOUNTER 2023-10-02 15:14 | Emergency (ER) | payer OTHER ==
[~2023-10-02] VITALS: Ht 182.9 cm; Wt 124.0 kg
[2023-10-02 15:25] VITALS: O2SAT 96
[2023-10-02 16:12] LABS: HEMATOCRIT. 46.2 % (42.0-52.0); HEMOGLOBIN. 15.5 g/dL (14.0-18.0); MEAN CORPUSCULAR HEMOGLOBIN 31.1 pg (28.0-32.0); MEAN CORPUSCULAR HGB CONC 33.6 g/dL (31.0-37.0); MEAN CORPUSCULAR VOLUME 92.4 fL (80.0-94.0); MEAN PLATELET VOLUME 9.2 fl (7.4-10.4); PLATELET 214 x1000/uL (130-400); RED CELL DISTRIBUTION WIDTH 13.9 % (11.6-14.6); WHITE BLOOD COUNT 17.7 x1000/uL (4.5-11.0)
[2023-10-02 16:15] LABS: DIFFERENTIAL COMMENT 1
[2023-10-02] MEDS: SODIUM CHLORIDE 0.9% 1,000 ML IV ONE (16:17)
[2023-10-02] MEDS: LEVETIRACETAM 500MG PREMIX 100 ML IV ONE ×3 (16:18)
[2023-10-02 16:23] LABS: CHLORIDE 104 mEq/L (98-107); POTASSIUM 3.6 mEq/L (3.5-5.1); SODIUM 138 mEq/L (136-145)
[2023-10-02 16:24] LABS: CARBON DIOXIDE 18 mEq/L (21-32)
[2023-10-02 16:25] LABS: CALCIUM 9.2 mg/dL (8.7-10.4)
[2023-10-02 16:29] LABS: CREATININE 1.6 mg/dL (0.6-1.3); GLUCOSE 142 mg/dL (70-105); UREA NITROGEN BLOOD 10 mg/dL (9-23)
[2023-10-02 16:31] LABS: ALANINE AMINOTRANSFERASE 17 IU/L (10-49); ALBUMIN 5.5 g/dL (3.2-4.8); ASPARTATE AMINOTRANSFERASE 35 IU/L (<34)
[2023-10-02 16:32] LABS: PROTEIN TOTAL 9.2 g/dL (6.0-8.3)
[2023-10-02 17:55] LABS: PLATELET ESTIMATE NORMAL
[2023-10-02] MEDS ORDERED: KEPP500 MT (19:50)
[2023-10-03] MEDS: ACETAMINOPHEN 325MG TABLET PO NR (00:10)
[2023-10-03] MEDS ORDERED: ACETAMINOPHEN 325MG TABLET PO NR (00:45)
[2023-10-03] MEDS: SODIUM CHLORIDE 0.9% 500 ML IV ONE (01:25)
[2023-10-03 01:28] VITALS: TEMP 99.5
[2023-10-03 04:17] VITALS: BP 66/35; PULSE 120; RESP 14
== END 2023-10-03 03:59 | disposition home or self-care (01) ==
LOC: ER 15:14 → CANBEDREQ 10-03 03:52 → ER 10-03 03:59
DX: R56.9 Unspecified convulsions (principal); E78.00 Pure hypercholesterolemia, unspecified; I10 Essential (primary) hypertension; Z20.822 Contact with and (suspected) exposure to COVID-19
CPT/HCPCS: 99285; 96365; 70450; 71045; 96366; 87426; 80053; 83880; 85025; 36415; 96361; 83605; J1953; J7030